=== PATIENT | female | born 1970 | race Caucasian/White ===

== ENCOUNTER → 2017-12-20 | Day surgery (SDC) | payer OTHER ==
--- NOTE | 2017-12-19 19:05 | History & Physical Pre-Op ---
General Information and HPI History of Present Illness: 47 yo G0 with uterine polyps on ultrasound and irregular menses presents for D&C , hysteroscopy. 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 EENTM: Reports: no symptoms. Cardiovascular: Reports: no symptoms. Respiratory: Reports: no symptoms. GI: Reports: no symptoms. Genitourinary: Reports: no symptoms. Musculoskeletal: Reports: no symptoms. Skin: Reports: no symptoms. Neurological/Psychological: Reports: no symptoms. Hematologic/Endocrine: Reports: no symptoms. Immunologic/Allergic: Reports: no symptoms. All Other Systems: Reviewed and Negative Exam & Diagnostic Data Last 24 Hrs of Vital Signs/I&O vss Physical Exam: HEENT: NCAT Chest: CTA CV: nl S1 S2 Abd: obese Ext: no c/c/e Assessment/Plan Assessment/Plan: endometrial polyps plan: D&C hysteroscopy As Ranked By This Provider Problem List: 1. Endometrial polyp
[~2017-12-20] VITALS: Ht 160 cm; Wt 86.2 kg
[~2017-12-20] MED LIST: ALPRAZOLAM0.5 M4 PO; CYCLOBENZAPRINE10 M1 PO; DAILY MULTIPLE1 EACH PO; DIAZEPAM5 M1 PO; IBUPROFEN800 M1 PO; NAPROXEN500 M2 PO
--- NOTE | 2017-12-27 08:57 | Operative Report ---
Operative/Inv Procedure Report Surgery Date: 12/20/17 Name of Procedure: D&C hysteroscopy D&C hysteroscopy Pre-Operative Diagnosis: Endometrial polyp Post-Operative Diagnosis: Atrophy Estimated Blood Loss: scant Surgeon/Rubber Stamp Maker: Byron Cuellar MD Anesthesia: moderate sedation Operative/Procedure Note Note: The patient is brought to the operating room placed on the OR table in the dorsal supine position. She was given adequate anesthesia and repositioned in a modified dorsal lithotomy prepped and draped in usual sterile fashion. A weighted speculum was inserted into the vagina and with the help of a Elver retractor single-tooth tenaculum was attached to the anterior lip of the cervix. This an endocervical curettage was performed and the uterus was sounded to 8 cm anteverted. The uterus the cervix was serially dilated to accommodate the hysteroscope which was placed into the fundus and the saline infusion was activated. No polyps were noted. No fibroids were noted. The hysteroscope was then removed and a sharp curettage followed revealing a small amount of tissue. The patient was then awakened and sent to recovery in good condition. All needle, sponge, and is recalcitrant correct at the end the procedure 2.
== END ==
LOC: STS 04:41
DX: N85.8 Other specified noninflammatory disorders of uterus (principal); E66.9 Obesity, unspecified; F17.200 Nicotine dependence, unspecified, uncomplicated
CPT/HCPCS: 81025; 88305; J0694; J2250

== ENCOUNTER 2018-03-01 20:45 | Emergency (ER) | payer OTHER ==
[2018-03-01] MEDS ORDERED: FIORINAL 50-321 EACH (21:53)
[2018-03-01] MEDS ORDERED: MOTRIN IB200 M1 (21:54)
--- NOTE | 2018-03-01 22:25 | ED AMS/SEIZURE/WEAK/DIZZY ---
History of Present Illness General Chief Complaint: Headache Stated Complaint: HEADACHE X 5 DAYS Source: patient, family, old records Exam Limitations: no limitations Vital Signs & Intake/Output Vital Signs & Intake/Output Vital Signs Date Time Temp Pulse Resp B/P B/P Pulse O2 O2 Flow FiO2 Mean Ox Delivery Rate 03/01 2151 98 Room Air 03/01 2149 79 134/87 03/01 2055 97.7 95 16 150/72 96 Room Air Allergies Coded Allergies: No Known Allergies (06/06/16) Reconcile Medications Alprazolam 0.5 MG TABLET 1 TAB PO PRN ANXIETY (Reported) Fiorinal (Fiorinal 50-325-40 MG Capsule) (Unknown Strength) CAPSULE (Unknown Dose) HEADACHE (Reported) Ibuprofen (Motrin Ib) 200 MG TABLET 800 MG HEADACHE (Reported) Multivitamin (Daily Multiple Vitamin) 1 EACH TABLET 1 TAB PO DAILY SUPPLEMENT (Reported) Triage Note: PT TO ED WITH C/O TEMPORAL HEADACHE, "LIKE GETTING HIT IN THE HEAD WITH A BAT." REPORTS MILD INTERMITTENT BLURRED VISION. SYMPTOMS BEGAN LAST MONDAY, REPORTS INCREASING STRESS AT HOME DUE TO RECENT LOSS IN FAMILY. SEEN BY PCP TODAY AND GIVEN FIORICET BUT HASNT TAKEN YET. REPORTS SOME NAUSEA AND DIZZINESS "LIKE THE ROOM IS SPINNING." Triage Nurses Notes Reviewed? yes Onset: Last week Duration: day(s):, constant, continues in ED Timing: recent history Injury Environment: home Severity: moderate, severe Modifying Factors: Improves With: immobilization, rest. Worsens With: movement. Associated Symptoms: chest pain LMP (ages 10-50): unknown : No Patient currently breastfeeds: No HPI: 6 days prior to admission patient felt a sudden snap in her head followed by positional dizziness and left-sided headache with blurred vision nausea chest pain. The episodes have continued with increased anxiety. She denies fever chills vomiting diarrhea cough shortness of breath dysuria rash bleeding change in motor function. Past History Travel History Traveled to [place] past 21 day No Medical History Any Pertinent Medical History? 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 No Review of Systems Review of Systems Constitutional: Reports: no symptoms. EENTM: Reports: no symptoms. Respiratory: Reports: no symptoms. Cardiovascular: Reports: see HPI, chest pain. GI: Reports: see HPI, nausea. Genitourinary: Reports: no symptoms. Musculoskeletal: Reports: no symptoms. Skin: Reports: no symptoms. Neurological/Psychological: Reports: see HPI, headache. Hematologic/Endocrine: Reports: no symptoms. Immunologic/Allergic: Reports: no symptoms. All Other Systems: Reviewed and Negative Physical Exam Physical Exam General Appearance: well developed/nourished, alert, awake, anxious, moderate distress, obese Head: atraumatic, normal appearance Eyes: Bilateral: normal appearance, PERRL, EOMI, other (nystagmus). Ears, Nose, Throat: normal pharynx, normal ENT inspection, hearing grossly normal Neck: normal inspection, supple, full range of motion, no midline tenderness Respiratory: normal breath sounds, chest non-tender, no respiratory distress, quiet respiration, lungs clear Cardiovascular: regular rate/rhythm, normal peripheral pulses, norml femoral pulses equa Peripheral Pulses: 4+ carotid (R), 4+ carotid (L) Gastrointestinal: normal bowel sounds, soft, non-tender, no organomegaly Back: normal inspection, normal range of motion, no vertebral tenderness Extremities: normal range of motion, no ligament instability Neurologic/Psych: no motor/sensory deficits, awake, alert, oriented x 3, normal gait, normal mood/affect, 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 Skin: intact, normal color, warm/dry Lymphatic: no anterior cervical blaire Core Measures ACS in differential dx? No CVA/TIA Diagnosis No Sepsis Present: No Sepsis Focused Exam Completed? No Progress Differential Diagnosis: benign positional vertigo, CVA/stroke, dehydration, electrolyte imbalance, hypoxia, labrynthitis, migraine VEGA Plan of Care: Orders Procedure Date/time Status TROPONIN LEVEL 03/01 2204 Complete MAGNESIUM 03/01 2204 Complete COMPREHENSIVE METABOLIC PANEL 03/01 2204 Complete CBC WITHOUT DIFFERENTIAL 03/01 2204 Complete EKG 03/01 2101 Active Laboratory Tests 03/01/182214: Anion Gap 13, Estimated GFR > 60, BUN/Creatinine Ratio 30.0 H, Glucose 98, Calcium 9.9, Magnesium 1.8, Total Bilirubin 0.3, AST 19, ALT 16, Alkaline Phosphatase 88, Troponin I < 0.01, Total Protein 7.4, Albumin 4.7, Globulin 2.7, Albumin/Globulin Ratio 1.7, CBC w Diff NO MAN DIFF REQ, RBC 4.55, MCV 87.9, MCH 28.9, MCHC 32.8 L, RDW 14.3, MPV 10.0, Gran % 51.9, Lymphocytes % 36.8, Monocytes % 9.4 H, Eosinophils % 1.2, Basophils % 0.7, Absolute Granulocytes 5.3, Absolute Lymphocytes 3.8 H, Absolute Monocytes 1.0 H, Absolute Eosinophils 0.1, Absolute Basophils 0.1 Diagnostic Imaging: Viewed by Me: CT Scan. Discussed w/RAD: CT Scan. Radiology Impression: no acute abnormality Initial ED EKG: normal axis, normal intervals, normal p-waves, normal QRS complex, normal sinus rhythm, no ST T wave changes Rhythm Strip: normal sinus rhythm Departure Departure Time of Disposition: 2346 Disposition: HOME OR SELF CARE Condition: Stable Clinical Impression Primary Impression: Tension headache Secondary Impressions: Vertigo Referrals: Yael Ricci APRN (PCP/Family) Departure Forms: Customer Survey General Discharge Information Prescriptions: Current Visit Scripts Meclizine HCl 1 TAB PO TIDPRN PRN vertigo #30 TAB Scopolamine 1 PATCH TOP Q72 PRN dizziness #4 PATCH
[2018-03-01 22:28] LABS: ABSOLUTE BASOPHIL COUNT 0.1 /CUMM (0.0-0.2); ABSOLUTE EOSINOPHIL COUNT 0.1 /CUMM (0.0-0.7); ABSOLUTE GRANULOCYTE CT 5.3 /CUMM (1.4-6.5); ABSOLUTE LYMPH COUNT 3.8 /CUMM (1.2-3.4); BASOPHIL % 0.7 % (0.0-2.0); EOSINOPHIL % 1.2 % (0-5); GRANULOCYTE % 51.9 % (42.2-75.2); HEMATOCRIT 39.9 % (37-47); MEAN CORPUSCULAR HGB 28.9 PG (27.0-31.0); MEAN CORPUSCULAR HGB CONC 32.8 G/DL (33.0-37.0); MEAN CORPUSCULAR VOLUME 87.9 FL (81.0-99.0); PLATELET COUNT 288 /CUMM (130-400); RBC DISTRIBUTION WIDTH 14.3 % (11.5-14.5); RED BLOOD CELL CT 4.55 /CUMM (4.20-5.40); WHITE BLOOD CELL COUNT 10.2 /CUMM (4.8-10.8)
--- NOTE | 2018-03-01 23:32 | CT SCAN REPORT ---
EXAMINATION: CT HEAD WITHOUT CONTRAST CLINICAL INFORMATION: Headache. Vertigo. COMPARISON: None. TECHNIQUE: Contiguous axial imaging was performed from the skull base to vertex without intravenous contrast. DLP: 621 mGy-cm. FINDINGS: There is no evidence of acute intracranial hemorrhage or territorial infarction. No abnormal mass effect or midline shift is seen. Moyer to white matter differentiation is well preserved. No extra-axial fluid collections are identified. No hydrocephalus. No significant volume loss. There is no abnormal attenuation within the brain parenchyma. The osseous structures and soft tissues are normal. The mastoid air cells and visualized portions of the paranasal sinuses are well aerated. IMPRESSION: No acute intracranial pathology.
[2018-03-01] MEDS ORDERED: SCOPOLAMINE1 EAC1 TOP (23:48)
[2018-03-01] MEDS ORDERED: MECLIZINE HCL25 MG PO (23:48)
[2018-03-02 00:02] VITALS: BP 132/78
== END 2018-03-02 00:03 ==
LOC: ERH 20:45
PROVIDERS: Emergency Medicine
DX: G44.209 Tension-type headache, unspecified, not intractable (principal); R42 Dizziness and giddiness
CPT/HCPCS: 93005; 93010; 96374; 96375; J0131; J2765